=== PATIENT | male | born 1960 | race Caucasian/White ===

== ENCOUNTER → 2019-05-17 15:04 | Outpatient (CLI) | payer OTHER, SELFPAY ==
--- NOTE | 2019-05-17 | DI.RAD.S_ITS ---
PROCEDURE: XR CHEST 2V INDICATIONS: RIGHT CHEST PAIN TECHNIQUE: 2 views of the chest were acquired. COMPARISON: [facility], , XR CXR 2V, 10/29/2004, 9:38. FINDINGS: Surgical changes and devices: None. Lungs and pleura: Focal area of increased opacity identified overlying the right upper lobe. Mediastinum: Mediastinal contours are normal. Heart size is normal. Bones and chest wall: No suspicious bony abnormalities. Soft tissues appear unremarkable. IMPRESSION: Increased opacity overlying the right upper lobe. It is indeterminate on the basis of this examination if this is within the pulmonary parenchyma or related to arthritic change of the overlying rib. CT chest is recommended for further evaluation. Dictated by: Ciarra Paul M.D. on 05/17/2019 at 16:32 Approved by: Ciarra Paul M.D. on 05/17/2019 at 16:33
== END ==
PROVIDERS: PCP Family Medicine; Visit Provider Family Medicine
DX: R07.9 Chest pain, unspecified (principal)
CPT/HCPCS: 71046

== ENCOUNTER → 2019-05-23 14:17 | Outpatient (CLI) | payer OTHER, SELFPAY ==
--- NOTE | 2019-05-23 14:26 | DI.CT.S_ITS ---
PROCEDURE: CT CHEST WO CON INDICATIONS: Chest pain, unspecified TECHNIQUE: Noncontrast 5 mm thick sections acquired from the pulmonary apices to the posterior costophrenic angles. 1 mm lung window, 5 mm thick coronal and sagittal and 7 mm axial MIP reformats were then acquired. For radiation dose reduction, the following was used: automated exposure control, adjustment of mA and/or kV according to patient size. COMPARISON: [facility], CR, XR CHEST 2V, 05/17/2019, 15:10. [facility], CT, ABDOMEN/PELVIS WITH CONTRAST, 02/24/2014, 8:21. [facility], CT, ABDOMEN/PELVIS WITH CONTRAST, 01/26/2014, 14:13. [facility], RG, XR CXR 2V, 10/29/2004, 9:38. FINDINGS: Image quality: Excellent. Lungs and pleura: At the right upper lobe posteriorly corresponding to the area of plain film concern is a far posterior 1.7 x 2.5 cm spiculated masslike structure with both solid and subsolid components. This extends to the pleural surface without definite evidence of chest wall invasion. More inferiorly within the posterior margin of the right middle lobe there is a second spiculated radiodensity measuring approximately 1.3 cm in maximal dimension abutting the pleural surface at the posterior apex of the middle lobe, also worrisome for representing neoplasm. No pleural effusions or pneumothorax. Central and peripheral airways are patent and normal in caliber. Mediastinum: Heart size is normal. No pericardial effusion. No mediastinal adenopathy by size criteria. Thoracic aorta and central pulmonary arteries are normal in size. Esophagus is normal in caliber. No hiatal hernia. Bones and chest wall: No suspicious bony lesions. No vertebral body compression fractures. No axillary or supraclavicular adenopathy by size criteria. Thyroid gland is not well-seen but is noncontrast technique. Abdomen: Visualized upper abdominal solid organs and bowel loops appear normal in the absence of contrast. IMPRESSION: Both inflammatory and neoplastic etiology could produce the 2 areas of right lung spiculated masslike structures. The upper larger lesion could be identified by plain film imaging 05/17/19. A smaller lesion in the middle lobe is not accurately seen by plain film. Nuclear medicine PET CT scanning may be warranted at this time given the proximity of the right upper lobe mass to the pleural surface. The study is noncontrast and therefore accurate assessment for presence or absence of mediastinal/hilar adenopathy is somewhat limited. Dictated by: Mario Vail M.D. on 05/23/2019 at 15:17 Approved by: Mario Vail M.D. on 05/23/2019 at 15:25
== END ==
PROVIDERS: PCP Family Medicine; Visit Provider Family Medicine
DX: R07.9 Chest pain, unspecified (principal); R91.8 Other nonspecific abnormal finding of lung field
CPT/HCPCS: 71250

== ENCOUNTER 2019-06-03 08:06 | Outpatient (CLI) | payer OTHER, SELFPAY ==
[2019-06-03] VITALS (19 sets, daily range): BP systolic 110–135; BP diastolic 71–88; PULSE 63–82; RESP 14–17; TEMP 36.8–37.3; O2SAT 93–100; BMI 25.0
--- NOTE | 2019-06-03 | PATH_ITS ---
[facility] Accession Number: [id number] . 01 Material submitted: . body - RUL MASS . 01 Clinical history: . NEEDLE CORE BIOPSY X2 . 01 Diagnosis: RUL Mass, Needle Core Biopsy: Scant fibrous tissue with mild chronic inflammation and hemosiderin-laden macrophages, overall inadequate for evaluation, see comment. MRV 06/06/2019 1619 Local . 01 Comment: If malignancy is clinically and radiologically suspected, re-biopsy is recommended. . 01 Electronically signed: . Xuan López MD, Pathologist NPI- [id number] . 01 Gross description: . Received in formalin is a scant amount of crabtree-sims tissue (less than 0.1 cm). Filtered through blue Bio-Wrap paper and entirely submitted in cassette A1. ([id number]) /FRR 06/04/2019 1330 Local . 01 Pathologist provided ICD-10: R91.8 . 01 CPT . 718316 Performed at: 01 [facility] [address], [place], [place] [id number] MD Bryan Buenrostro MD Phone: [phone]
--- NOTE | 2019-06-03 | DI.RAD.S_ITS ---
PROCEDURE: XR CHEST 1V INDICATIONS: PNEUMO POST BIOPSY TECHNIQUE: One view of the chest was acquired. COMPARISON: [facility], , XR CHEST 2V, 05/17/2019, 15:10. FINDINGS: Surgical changes and devices: None. Lungs and pleura: Small-moderate right pneumothorax is noted, status post CT guided lung biopsy. No pleural effusion or focal consolidation. Scattered atelectasis. Mediastinum: Mediastinal contours appear normal. Heart size is normal. Bones and chest wall: No suspicious bony lesions. Overlying soft tissues appear unremarkable. IMPRESSION: Small-moderate right sided pneumothorax, status post CT guided right lung biopsy. The patient was stable upon leaving the CT suite for further monitoring in day surgery, without shortness of breath or pain. Continued radiographic surveillance is pending in one hour Dictated by: Tan Izquierdo M.D. on 06/03/2019 at 11:38 Approved by: Tan Izquierdo M.D. on 06/03/2019 at 11:40
--- NOTE | 2019-06-03 | DI.CT.S_ITS ---
PROCEDURE: CT BIOPSY LUNG RT Sedation analgesia for 15 minutes. INDICATIONS: MASS TECHNIQUE: The indications, alternatives, benefits, risks, and possible complications of the procedure were communicated to the patient. Informed written consent from the patient was obtained and placed in the chart. Continuous EKG and hemodynamic monitoring was started by trained personnel. The patient was brought to the CT suite and director of scout work spiral CT imaging was performed with localization grid. The appropriate site for percutaneous access to the biopsy target was marked, was prepped and draped sterilely, and was infused with local anaesthesia. Under CT guidance, a core biopsy trocar and needle set was advanced to the biopsy target, and specimen(s) were obtained. The trocar and needle were then removed, and the patient was sent for post-procedure monitoring. COMPARISON: None. FINDINGS: Biopsy site: Right upper lobe Needle: 20 gauge biopsy needle with introducer trocar. Number of passes: 2, however further attempts at sampling were precluded by development of right-sided pneumothorax Medications: 1% lidocaine for local anaesthesia. IV Fentanyl and Versed for conscious sedation for 15 minutes (see nursing record). Complications: None. IMPRESSION: Technically successful CT-guided biopsy of right lung nodule, although further sampling was prematurely terminated due to the development of a right-sided pneumothorax. Patient was stable upon leaving the CT suite with no shortness of breath or chest pain and continued radiographic surveillance is pending Dictated by: Tan Izquierdo M.D. on 06/03/2019 at 11:40 Approved by: Tan Izquierdo M.D. on 06/03/2019 at 11:43
[2019-06-03 08:29] LABS: Hematocrit 47.2 % (41-53)
[2019-06-03] MEDS: MIDAZOLAM 2 MG/2 ML VIAL 1 MG IV (10:07)
[2019-06-03] MEDS: fentaNYL 100 MCG/2 ML INJ 50 MCG IV (10:07)
--- NOTE | 2019-06-03 11:40 | DI.RAD.S_ITS ---
PROCEDURE: XR CHEST 1V INDICATIONS: Pneumothorax TECHNIQUE: One view of the chest was acquired. COMPARISON: [facility], CR, XR CHEST 1V, 06/03/2019, 10:29. FINDINGS: Surgical changes and devices: None. Lungs and pleura: No new consolidation. No pleural effusions. There is small-moderate persistent right-sided pneumothorax, which appears less conspicuous since the prior earlier study however this could be due to redistribution/patient positioning Mediastinum: Mediastinal contours appear normal. Heart size is normal. Bones and chest wall: No suspicious bony lesions. Overlying soft tissues appear unremarkable. IMPRESSION: Grossly stable right-sided pneumothorax, status post CT guided lung biopsy. The patient reports no chest pain or shortness of breath at this time. Continued radiographic surveillance is pending in 2 hours. Dictated by: Tan Izquierdo M.D. on 06/03/2019 at 11:49 Approved by: Tan Izquierdo M.D. on 06/03/2019 at 11:56
--- NOTE | 2019-06-03 11:54 | SUR.PHASEII ---
patient returned from radiology,remains awake, alert skin pink warm and dry. breath sounds diminished throughtout, unchanged, patient deneis chest pain or dyspnea instructed again to call for any change or new symptoms. Phone report recieved from radiologist Patient sleeping, continous pulse and oximetry monitor in place.
--- NOTE | 2019-06-03 12:40 | DI.RAD.S_ITS ---
PROCEDURE: XR CHEST 1V INDICATIONS: 2hr post procedure TECHNIQUE: One view of the chest was acquired. COMPARISON: [facility], CR, XR CHEST 1V, 06/03/2019, 11:36. FINDINGS: Surgical changes and devices: None. Lungs and pleura: . No pleural effusion or new consolidation. Unchanged right pulmonary nodules. Right pneumothorax appears unchanged Mediastinum: Mediastinal contours appear normal. Heart size is normal. Bones and chest wall: No suspicious bony lesions. Overlying soft tissues appear unremarkable. IMPRESSION: Stable appearance of small right pneumothorax. Dictated by: Tan Izquierdo M.D. on 06/03/2019 at 13:46 Approved by: Tan Izquierdo M.D. on 06/03/2019 at 13:55
--- NOTE | 2019-06-03 12:42 | SUR.PHASEII ---
pt laying in bed with eyes closed, easily arousable to voice when spoken to. Drsg to biopsy site observed to be c/d/i. Ausculation of right lung noted to have diminished sounds. pt denies any pain/discomfort or sob.
--- NOTE | 2019-06-03 14:17 | SUR.PHASEII ---
pt sitting up in bed, visiting with at bedside. pt tolerating black coffee without any difficultly. Drsg to biopsy site observed to be c/d/i. pt denies any pain/discomfort or sob. bed in lowest position and call light given to pt. pt appears comfortable at this time.
--- NOTE | 2019-06-03 14:40 | DI.RAD.S_ITS ---
PROCEDURE: XR CHEST 1V INDICATIONS: 4hr post procedure TECHNIQUE: One view of the chest was acquired. COMPARISON: [facility], CR, XR CHEST 1V, 06/03/2019, 11:36. [facility], CR, XR CHEST 1V, 06/03/2019, 10:29. [facility], CT, CT BIOPSY LUNG RT, 06/03/2019, 9:32. [facility], CR, XR CHEST 1V, 06/03/2019, 13:35. FINDINGS: Surgical changes and devices: None. Lungs and pleura: Redemonstration of multiple right-sided pulmonary nodules. No new consolidation No pleural effusions. Slightly less conspicuous appearance of small right pneumothorax. Mediastinum: Mediastinal contours appear normal. Heart size is normal. Bones and chest wall: No suspicious bony lesions. Overlying soft tissues appear unremarkable. IMPRESSION: Slightly decreased size of small right pneumothorax since earlier same day. Dictated by: Tan Izquierdo M.D. on 06/03/2019 at 15:51 Approved by: Tan Izquierdo M.D. on 06/03/2019 at 15:52
== END 2019-06-03 15:04 ==
PROVIDERS: PCP Family Medicine; Referring Provider Family Medicine; Visit Provider Family Medicine
PROC: BF25ZZZ Computerized Tomography (CT Scan) of Liver (ICD-10-PCS; CPT 47000; principal; 2019-06-03 09:30)
DX: R91.8 Other nonspecific abnormal finding of lung field (principal); J95.811 Postprocedural pneumothorax; Y84.8 Other medical procedures as the cause of abnormal reaction of the patient, or of later complication, without mention of misadventure at the time of the procedure; Y78.0 Diagnostic and monitoring radiological devices associated with adverse incidents
CPT/HCPCS: 32405; 36415; 71045; 77012; 85014; J2250; J3010

== ENCOUNTER → 2019-06-10 11:07 | Outpatient (ROUT) | payer OTHER, SELFPAY ==
[2019-06-10 11:28] LABS: Prothrombin Time 11.9 SECONDS (10.1-12.7)
== END ==
PROVIDERS: PCP Family Medicine; Visit Provider Family Medicine
DX: R91.8 Other nonspecific abnormal finding of lung field (principal)
CPT/HCPCS: 85610

== ENCOUNTER 2019-06-13 09:03 | Outpatient (CLI) | payer OTHER, SELFPAY ==
[2019-06-13] VITALS (8 sets, daily range): BP systolic 145–172; BP diastolic 70–95; PULSE 60–80; RESP 12–16; TEMP 37.2–37.4; O2SAT 94–100; BMI 25.0
--- NOTE | 2019-06-13 | DI.CT.S_ITS ---
PROCEDURE: CT CHEST WO CON INDICATIONS: RIGHT LUNG MASS TECHNIQUE: Noncontrast 5 mm thick sections acquired from the pulmonary apices to the posterior costophrenic angles. 1 mm lung window, 5 mm thick coronal and sagittal and 7 mm axial MIP reformats were then acquired. For radiation dose reduction, the following was used: automated exposure control, adjustment of mA and/or kV according to patient size. COMPARISON: [facility], CT, CT CHEST WO CON, 05/23/2019, 14:16. FINDINGS: Image quality: Excellent. Limited images through the right lung demonstrate grossly unchanged size and appearance of spiculated mass seen in the right upper lobe. There is overlying right pneumothorax, decreased since the prior study dated 05/23/19. IMPRESSION: Persistent small right pneumothorax overlying right upper lobe pulmonary nodule (for which CT guided lung biopsy was planned). Therefore, the procedure was deferred until later date for safety reasons. This was discussed in detail with the patient at the time of study, in addition to with Dr. Swartz on 06/13/19. Dictated by: Tan Izquierdo M.D. on 06/13/2019 at 14:38 Approved by: Tan Izquierdo M.D. on 06/13/2019 at 14:40
[2019-06-13 09:56] LABS: Hematocrit 49.3 % (41-53)
[2019-06-13] MEDS: MIDAZOLAM 2 MG/2 ML VIAL IV (11:05)
[2019-06-13] MEDS: fentaNYL 100 MCG/2 ML INJ IV (11:06)
--- NOTE | 2019-06-13 11:25 | SUR.PHASEII ---
pt arrived from DI via stretcher. pt sitting up, alert and talking to RN. Pt denies any pain/discomfort or sob. VSS. pt drinking coffee at this time. Bed in lowest position and call light given to pt. pt appears comfortable at this time.
== END 2019-06-13 12:22 | disposition home or self-care (01) ==
LOC: OR 09:05
PROVIDERS: PCP Family Medicine; Referring Provider Family Medicine; Visit Provider Family Medicine
PROC: BB24ZZZ Computerized Tomography (CT Scan) of Bilateral Lungs (ICD-10-PCS; CPT 32408; principal; 2019-06-13 10:30)
DX: R91.8 Other nonspecific abnormal finding of lung field (principal); J93.9 Pneumothorax, unspecified
CPT/HCPCS: 36415; 71250; 85014; J2250; J3010

== ENCOUNTER → 2020-02-07 15:10 | Outpatient (CLI) | payer OTHER, SELFPAY ==
[2020-02-08 06:42] LABS: COVID19 Sendout Not Detected (Not Detect)
== END ==
PROVIDERS: PCP Family Medicine; Visit Provider Physician Assistant
DX: Z01.812 Encounter for preprocedural laboratory examination (principal)
CPT/HCPCS: 87635

== ENCOUNTER 2020-02-10 13:39 | Day surgery (SDC) | payer OTHER, SELFPAY ==
--- NOTE | 2020-02-10 | PATH_ITS ---
[facility] Accession Number: [id number] . 01 Material submitted: . PART A: cecum - CECUM ATYPICAL MUCOSA PART B: sigmoid colon - SIGMOID POLYP . 02 Diagnosis: A. Cecum, Atypical Mucosa, Biopsy: Tubular adenoma. . B. Sigmoid Colon, Polyp, Biopsy: Inflammatory polyp with feature suggestive of mucosal prolapse. Additional levels were examined. Negative for dysplasia and malignancy. [facility] 02/15/2020 1605 Local . 02 Electronically signed: . Kira Gilman MD, Pathologist NPI- [id number] . 01 Gross description: . A. The specimen is received in formalin, labeled atypical mucosa cecum, and consists of two sims fragments of soft tissue measuring 0.6 x 0.5 x 0.2 cm in aggregate. The specimen is entirely submitted in cassette A1. B. The specimen is received in formalin, labeled sigmoid polyp, and consists of two sims-brown polyps measuring 0.7 x 0.5 x 0.2 cm each. The specimen is entirely submitted in cassette B1. ([id number]) /Noelle 02/11/2020 1820 Local . 02 Pathologist provided ICD-10: D12.0 . 02 CPT . 042349, 570773 Performed at: 01 [facility] [address], [place], [place] [id number] MD Bryan Buenrostro MD Phone: [phone] Performed at: 02 [facility] [address] [place], [place] [id number] MD Kira Gilman MD Phone: [phone]
--- NOTE | 2020-02-10 12:43 | P.HP_ITS ---
History of Present Illness History of Present Illness Date Patient Seen: 02/10/20 Chief complaint: SCREENING COLONOSCOPY Narrative: 59 Years Old Male seen today for consideration of a screening colonoscopy. Two previous colonoscopies, 2010 and 2013. Results unavailable from 2011 colonoscopy at time of dictation but patient thinks he had possibly 30 polyps removed. Last colonoscopy on 04/11/[address] Abarca was secondary to a sigmoid perforation from acute diverticulitis versus neoplasm. Findings showed extensive sigmoid diverticulosis, localized area of narrowing, and mild inflammation consistent diverticulitis. 2 small rectal polyps were removed, hyperplastic and tubular adenoma. There have been no lower GI symptoms suggesting disease such as change in bowel habits, bleeding, abdominal pain or anemia. There's been no family history of colon cancer or colon polyps. Overall health issues have been stable, including no major cardiac events for at least 6 weeks. Current Medications 1) Clonazepam 0.5 Mg Oral Tablet (Clonazepam) .... Take 1 tablet by mouth twice daily, for anxiety prn 2) Multi-Vitamin/minerals Oral Tablet (Multiple Vitamins-Minerals) .... take one daily 3) Epipen 2-Allan Solution Auto-Injector (Epinephrine Soaj) .... use as directed for bee sting Allergies No Known Drug Allergies Past Medical History: History of gallbladder polyps. History of right ulnar fracture 2008 History of right wrist fracture 2006 History of sigmoid diverticular abscess January 2014 Cancer of lung, Hx of PSA, increased Basal cell carcinoma in situ skin of shoulder Lung mass Chest pain, atypical Anxiety DEPRESSION, MAJOR, MODERATE CHRONIC FATIGUE SYNDROME Joint pain LESION, SKIN HEPATITIS C, CHRONIC, treated x 3 BACK PAIN, LUMBAR, CHRONIC GASTROESOPHAGEAL REFLUX DISEASE, CHRONIC TOBACCO USE DISORDER ADENOMATOUS COLON POLYP BEE STING ALLERGY Past Surgical History: Right ulnar reduction 2009 Liver biopsy 11/18/10 06/28/15 Right inguinal hernia repair [facility] left foot neuroma surgery 05/19/16 Colonoscopy x2 Family History: Reviewed history from 08/16/2015 and no changes required: Sister with multiple myeloma Mother with lung cancer Sister with ALS Social History: Full medical disability secondary to fatigue and hepatitis C. One child [place] 1998 2 beers per week Patient History Family & Social History Social History: household members spouse Tobacco & Substance use: Tobacco type cigarettes Smoking Status Current every day smoker alcohol intake current alcohol intake frequency a few times a week Substance Use Type does not use Meds Home Medications and Allergies Home Medications Medication Instructions Recorded Confirmed Type clonazepam 0.5 mg PO BEDTIME PRN 06/03/19 02/10/20 History epinephrine [EpiPen 2-Allan] 0.3 ml IM PRN PRN 06/10/19 02/10/20 History Allergies Allergy/AdvReac Type Severity Reaction Status Date / Time venom-honey bee Allergy Unknown Verified 02/10/20 14:34 [BEE VENOM (HONEY BEE)] Review of Systems Review of Systems ROS: Yes All systems reviewed with the patient and are negative except as otherwise documented Exam Narrative Exam Narrative: GENERAL: Alert and oriented, appearing stated age and in no acute distress. HEENT: Head normocephalic/atraumatic. Pupils equal, round, and reactive to light and accomodation. Extraocular muscles intact. Tympanic membranes clear. Nasal mucosa moist, septum midline. Oral mucosa moist, no lesions. Neck soft and supple, no lymphadenopathy. LUNGS: Clear to ausculation bilaterally, no wheezes, rhonchi or rales. CV: Normal S1 and S2 with regular rate and rhythm, no audible murmurs, rubs or gallops. ABDOMEN: Soft, non-tender, non-distended, no organomegaly. Positive bowel sounds. EXTREMITIES: No clubbing, cyanosis, or edema. NEURO: Cranial nerves II through XII grossly intact, no focal deficits. PSYCH: Alert and oriented x 3. SKIN: No concerning lesions. Assessment & Plan Assessment & Plan narrative: 1. History of colon polyps 2. Diverticulosis 3. Screening for colon cancer Plan for colonoscopy. The nature and character of the procedure as well as anticipated results were discussed. The possibility of not completing the procedure was also discussed. Possible complications including aspiration pneumonia, bleeding, perforation and reaction to medications either for sedation or preparation and missed lesions were discussed. Questions were answered and proceeding to the colonoscopy was elected. Informed consent signed. I sincerely appreciate the referral allowing me to participate in this patient's care. Please contact me with any questions or concerns.
--- NOTE | 2020-02-10 12:44 | PM.OP.ENDO ---
Operative Date/Time/Diagnoses Date of procedure: 02/10/20 Procedure Notes SCOAP/Timeout: 15:51 Procedure in detail: ENDOSCOPIST: Anay Currie MD Sedation RN: Sid Escamilla RN Sedation start time: 3:52 p.m. Sedation end time: 4:41 p.m. PROCEDURE: Colonoscopy with methylene blue lift, hot snare, and hemoclip placement INDICATIONS: 1. History of colon polyps 2. Diverticulosis 3. Screening for colon cancer MEDICATION: Levsin 0.125 mg sublingual, incremental doses of Versed and fentanyl until appropriate level sedation achieved. ASA CLASS: 2 CECAL WITHDRAWAL TIME: 37 minutes COMPLICATIONS: None. EXTENT OF PROCEDURE: Cecum. QUALITY OF PREP: Good with portions of liquid stool. PROCEDURE: Prior to insertion of the colonoscope, a digital rectal examination was accomplished with circumferential palpation of the distal rectal mucosa without significant findings being noted. The high-definition colonoscope was passed into the rectum in the usual fashion and advanced over to the cecum without difficulty. The ileocecal valve, appendiceal stoma, and medial wall all could be inspected and adjacent to the appendiceal orifice, atypical mucosa was noted and biopsied with cold biopsy forceps. ASCENDING COLON: As the colonoscope was withdrawn, care was taken to expose and inspect the haustral folds. A polypoid mass of tissue was seen that, after insufflation, disappeared, likely everted diverticuli. HEPATIC FLEXURE: Normal, no polyps, diverticula or other abnormalities. TRANSVERSE COLON: Normal, no polyps, diverticula or other abnormalities. DESCENDING COLON: Moderate diverticulosis, otherwise, normal, no polyps, diverticula or other abnormalities. SIGMOID COLON: A 1.2 mm sessile polyp was seen, lifted with methylene blue, and removed with hot snare in 2 pieces, excellent hemostasis. Hemoclip placed to encourage necrosis. Otherwise, moderate diverticulosis also seen. RECTUM: Normal. J maneuver was produced. There was no significant perianal disease. The J maneuver was broken. The remainder of the rectum was inspected and there was no external hemorrhoid disease. The scope was withdrawn. IMPRESSION: 1. Atypical mucosa, cecum, targeted biopsy taken x2 2. Sigmoid polyp x1, 1.2 mm, lifted with methylene blue and removed with hot snare in piecemeal resection, hemoclip placed x1 3. Diverticulosis, left-sided PLAN: 1. Follow-up in clinic status post pathology results. The possibility of a missed lesion including a malignancy has been discussed with the patient previously. Potential alarm symptoms have been discussed and should be reported immediately. Post-procedure Recommendations: Will call with biopsy results Follow up: weeks (2)
[2020-02-10 14:36] VITALS: BP 132/86; PULSE 79; RESP 16; TEMP 36.5; O2SAT 98; BMI 25.5
[2020-02-10] MEDS: HYOSCYAMINE 0.125 MG TABLET PO (14:47)
[2020-02-10] MEDS: LACTATED RINGERS 1,000 ML 200 ML IV (14:53)
[2020-02-10] MEDS: fentaNYL 250 MCG/5 ML INJ IV (15:52)
[2020-02-10] MEDS: MIDAZOLAM 5 MG/5 ML VIAL IV (15:52)
[2020-02-10] MEDS: METHYLENE BLUE 50 MG/10 ML VIAL 10 MG IV (16:45)
[2020-02-10 16:47] VITALS: BP 139/79; PULSE 78; RESP 16; TEMP 36.8; O2SAT 99
[2020-02-10 16:51] VITALS: BP 133/84; PULSE 73; RESP 18; O2SAT 99
[2020-02-10 16:57] VITALS: BP 133/76; PULSE 75; RESP 18; O2SAT 97
[2020-02-10 17:02] VITALS: BP 135/85; PULSE 74; RESP 12; O2SAT 97
[2020-02-10 17:08] VITALS: BP 120/80; PULSE 74; RESP 16; O2SAT 98
== END 2020-02-10 17:26 | disposition home or self-care (01) ==
PROVIDERS: PCP Family Medicine; Referring Provider Student in an Organized Health Care Education/Training Program; Visit Provider Student in an Organized Health Care Education/Training Program
PROC: 0DJD8ZZ Inspection of Lower Intestinal Tract, Via Natural or Artificial Opening Endoscopic (ICD-10-PCS; CPT 45378; principal; 2020-02-10 15:15)
DX: Z12.11 Encounter for screening for malignant neoplasm of colon (principal); Z86.010 Personal history of colon polyps; K57.30 Diverticulosis of large intestine without perforation or abscess without bleeding; D12.0 Benign neoplasm of cecum
CPT/HCPCS: 45385; 45381; J2250; J3010; Q9968

== ENCOUNTER → 2020-05-09 09:23 | Outpatient (CLI) | payer OTHER, SELFPAY ==
[2020-05-09 11:21] LABS: COVID19 -Nasal RAPID Negative (Negative)
== END ==
PROVIDERS: PCP Family Medicine; Visit Provider Nurse Practitioner
DX: Z20.822 Contact with and (suspected) exposure to COVID-19 (principal)
CPT/HCPCS: 87635

== ENCOUNTER 2020-05-11 14:03 | Day surgery (SDC) | payer OTHER, SELFPAY ==
--- NOTE | 2020-05-11 | PATH_ITS ---
[facility] Accession Number: [id number] . 01 Material submitted: . cecum - POLYP 3 MM CECUM . 01 Clinical history: . DX COLONOSCOPY . 02 Diagnosis: Cecum, Polyp, 3 MM, Biopsy: Colonic mucosa with no diagnostic abnormality, consistent with polypoid redundancy. Additional levels were examined. Negative for dysplasia and malignancy. I 05/18/2020 1513 Local . 02 Electronically signed: . Kira Gilman MD, Pathologist NPI- [id number] . 01 Gross description: . POLYP 3 MM CECUM: Received in formalin are 2 fragment(s) of sims, soft tissue measuring 0.2 x 0.2 x 0.2 cm to 0.3 x 0.2 x 0.2 cm submitted entirely in 1 cassette(s) /PAULINA 05/14/2020 1913 Local . 02 Pathologist provided ICD-10: K63.5 . 02 CPT . 759808 Performed at: 01 [facility] [address], [place], [place] [id number] MD Bryan Buenrostro MD Phone: [phone] Performed at: 02 [facility] [address] [place], [place] [id number] MD Kira Gilman MD Phone: [phone]
--- NOTE | 2020-05-11 12:37 | PM.OP.ENDO ---
Operative Date/Time/Diagnoses Date of procedure: 05/11/20 Procedure Notes SCOAP/Timeout: 4:16 pm Procedure in detail: ENDOSCOPIST: Anay Currie MD Anesthesiologist: Dr West Sedation start time: 4:17 p.m. Sedation end time: 4:45 p.m. PROCEDURE: Colonoscopy with biopsy INDICATIONS: 1. History of unresectable polyp, tubular adenoma, cecum 2. Diverticulosis 3. Screening for colon cancer MEDICATION: Levsin 0.125 mg sublingual, incremental doses of propofol until appropriate level sedation achieved. ASA CLASS: 2 CECAL WITHDRAWAL TIME: 21 minutes COMPLICATIONS: None. EXTENT OF PROCEDURE: Cecum. QUALITY OF PREP: Good with portions of liquid stool. PROCEDURE: Prior to insertion of the colonoscope, a digital rectal examination was accomplished with circumferential palpation of the distal rectal mucosa without significant findings being noted. The high-definition colonoscope was passed into the rectum in the usual fashion and advanced over to the cecum without difficulty. The ileocecal valve, appendiceal stoma, and medial wall all could be inspected and the area of atypical mucosa, adjacent to the appendiceal orifice, was identified and a 3 mm sessile polyp was removed with cold biopsy forceps, excellent hemostasis noted. There were 2 areas that were slightly irregular near the ileocecal valve, both were injected with methylene blue with complete uptake, signifying normal mucosa, and so they were not biopsied. ASCENDING COLON: As the colonoscope was withdrawn, care was taken to expose and inspect the haustral folds and no abnormalities were seen. HEPATIC FLEXURE: Normal, no polyps, diverticula or other abnormalities. TRANSVERSE COLON: Normal, no polyps, diverticula or other abnormalities. DESCENDING COLON: Moderate diverticulosis, otherwise, normal, no polyps or other abnormalities. SIGMOID COLON: Moderate diverticulosis, otherwise, normal, no polyps or other abnormalities. RECTUM: Normal. J maneuver was produced. There was no significant perianal disease. The J maneuver was broken. The remainder of the rectum was inspected and there was no external hemorrhoid disease. The scope was withdrawn. IMPRESSION: 1. 3 mm sessile polyp, cecum, removed with cold biopsy forceps 2. Diverticulosis, left-sided PLAN: 1. Follow-up in clinic status post pathology results. The possibility of a missed lesion including a malignancy has been discussed with the patient previously. Potential alarm symptoms have been discussed and should be reported immediately.
--- NOTE | 2020-05-11 12:38 | PM.PREOP ---
Pre-operative Note COVID-19 COVID-19 status: Negative Result date/Date tested (Pos, Neg/Pending): 05/09/20 Interval Note History & Physical reviewed/Exam performed by Physician: Yes Changes to H&P: No ASA Class (for procedural sedation): II
[2020-05-11 14:17] VITALS: BP 131/84; PULSE 78; RESP 17; TEMP 36.8; O2SAT 99; BMI 25.2
[2020-05-11] MEDS: LACTATED RINGERS 1,000 ML 42 ML IV (14:29)
[2020-05-11] MEDS: HYOSCYAMINE 0.125 MG TABLET PO (14:29)
[2020-05-11] MEDS: METHYLENE BLUE 50 MG/10 ML VIAL 10 MG IV (16:40)
[2020-05-11 16:50] VITALS: BP 94/61; PULSE 62; RESP 16; O2SAT 96
[2020-05-11 16:55] VITALS: BP 101/68; PULSE 72; RESP 11; O2SAT 97
[2020-05-11 17:00] VITALS: BP 117/79; PULSE 72; RESP 18; O2SAT 96
[2020-05-11 17:05] VITALS: BP 123/70; PULSE 67; RESP 16; O2SAT 99
[2020-05-11 17:14] VITALS: BP 133/86; PULSE 64; RESP 15; O2SAT 99
== END 2020-05-11 17:34 | disposition home or self-care (01) ==
PROVIDERS: PCP Family Medicine; Referring Provider Student in an Organized Health Care Education/Training Program; Visit Provider Student in an Organized Health Care Education/Training Program
PROC: 0DJD8ZZ Inspection of Lower Intestinal Tract, Via Natural or Artificial Opening Endoscopic (ICD-10-PCS; CPT 45378; principal; 2020-05-11 15:15)
DX: Z12.11 Encounter for screening for malignant neoplasm of colon (principal); F17.210 Nicotine dependence, cigarettes, uncomplicated; K57.30 Diverticulosis of large intestine without perforation or abscess without bleeding; D12.0 Benign neoplasm of cecum
CPT/HCPCS: 45380; Q9968

== ENCOUNTER → 2024-04-18 08:57 | Outpatient (CLI) | payer MEDICARE, OTHER, SELFPAY ==
--- NOTE | 2024-04-18 09:06 | DI.RAD.S_ITS ---
PROCEDURE: XR CHEST 2V INDICATIONS: ACUTE COUGH TECHNIQUE: 2 views of the chest were acquired. COMPARISON: [facility], CT, CT LOW DOSE LUNG CA SCREENING, 02/26/2024, 10:09. [facility], CR, XR CHEST 1V, 06/03/2019, 14:33. FINDINGS: Surgical changes and devices: None. Lungs and pleura: Large right joint effusion with associated compressive atelectasis is similar prior CT. Left lung and pleural space clear Mediastinum: Mediastinal contours are normal. Heart size is normal. Bones and chest wall: No suspicious bony abnormalities. Soft tissues appear unremarkable. IMPRESSION: Stable right large pleural effusion and associated compressive atelectasis. Approved by: Grabiel Hodeg M.D. on 04/18/2024 at 14:51
== END ==
LOC: RAD 09:03
PROVIDERS: PCP Family Medicine; Referring Provider Family Medicine; Visit Provider Family Medicine
DX: J90 Pleural effusion, not elsewhere classified (principal); J98.11 Atelectasis; R05.1 Acute cough
CPT/HCPCS: 71046

== ENCOUNTER → 2024-07-20 11:27 | Outpatient (CLI) | payer OTHER, SELFPAY ==
--- NOTE | 2024-07-20 11:30 | DI.RAD.S_ITS ---
PROCEDURE: XR CHEST 2V INDICATIONS: rhonchi TECHNIQUE: 2 views of the chest were acquired. COMPARISON: [facility], CT, CT LOW DOSE LUNG CA SCREENING, 02/26/2024, 10:09. [facility], CR, XR CHEST 2V, 04/18/2024, 9:09. [facility], CR, XR CHEST 1V, 06/03/2019, 14:33. [facility], CR, XR CHEST 1V, 06/03/2019, 13:35. [facility], CR, XR CHEST 1V, 06/03/2019, 10:29. FINDINGS: Surgical changes and devices: None. Lungs and pleura: Status post right upper lobe and right middle lobe wedge resection, with corresponding volume loss and mild hyperinflation of the left lung parenchyma. No significant change in small right pleural effusion with adjacent passive atelectasis. Small left pleural effusion. Mediastinum: Mediastinal contours are normal. Heart size is normal. Bones and chest wall: No suspicious bony abnormalities. Chronic left 8th posterolateral rib fracture. Soft tissues appear unremarkable. IMPRESSION: 1. No significant change compared to 04/18/2024. 2. Status post right parenchymal resection, with residual small right pleural effusion. 3. Residual small left pleural effusion. Dictated by: Carlos Enrique Carbajal M.D. on 07/21/2024 at 8:46 Approved by: Carlos Enrique Carbajal M.D. on 07/21/2024 at 8:50
== END ==
PROVIDERS: PCP Family Medicine; Referring Provider Family Medicine; Visit Provider Family Medicine
DX: R09.89 Other specified symptoms and signs involving the circulatory and respiratory systems (principal); R06.02 Shortness of breath; J90 Pleural effusion, not elsewhere classified
CPT/HCPCS: 71046

== ENCOUNTER → 2024-09-14 08:10 | Outpatient (CLI) | payer OTHER, SELFPAY | PROVIDERS: PCP Family Medicine; Referring Provider Family Medicine; Visit Provider Family Medicine | DX: R06.02 Shortness of breath (principal); Z87.891 Personal history of nicotine dependence; J98.8 Other specified respiratory disorders; R94.2 Abnormal results of pulmonary function studies | CPT/HCPCS: 94060; 94726; 94729 ==